=== PATIENT | male | born 1955 | race Caucasian/White ===

== ENCOUNTER → 2017-11-22 | Outpatient (CLI) | payer OTHER ==
[~2017-11-22] MED LIST: ADVIL,NUPRIN,M200 MG PO; AUGMENTIN875 MG PO; BISOPROLOL-HCT1 EAC1 PO; CRESTOR20 MG PO; DOXAZOSIN MESYLA2 MG PO; KRILL OIL500 MG PO; PANTOPRAZOLE SO40 MG PO; PREDNISONE10 MG PO
== END | disposition home or self-care (01) ==
LOC: CDC 10:04
DX: Z01.810 Encounter for preprocedural cardiovascular examination (principal); S83.231D Complex tear of medial meniscus, current injury, right knee, subsequent encounter; M25.561 Pain in right knee; M17.11 Unilateral primary osteoarthritis, right knee; R94.31 Abnormal electrocardiogram [ECG] [EKG]
CPT/HCPCS: 93000